=== PATIENT | male | born 1985 | race African-American/Black ===

== ENCOUNTER 2021-05-08 09:22 | Emergency (ER) | payer SELFPAY ==
[~2021-05-08] VITALS: Ht 185.4 cm; Wt 94.0 kg
[2021-05-08] MEDS ORDERED: SODIUM CHLORIDE 0.9% 1,000 ML IV ONE (10:15)
[2021-05-08 10:34] LABS: BASOPHILS % 0.5 % (0.0-2.0); HEMATOCRIT. 45.4 % (42.0-52.0); HEMOGLOBIN. 15.5 g/dL (14.0-18.0); LYMPHOCYTES % 16.1 % (20.0-50.0); MEAN CORPUSCULAR HEMOGLOBIN 28.9 pg (28.0-32.0); MEAN CORPUSCULAR VOLUME 84.7 fL (80.0-94.0); MEAN PLATELET VOLUME 8.2 fl (7.4-10.4); MONOCYTES % 11.1 % (2.0-8.0); NEUTROPHILS % 71.3 % (40.0-76.0); PLATELET 226 x1000/uL (130-400); RED BLOOD CELL COUNT 5.36 mill/uL (4.7-6.1); RED CELL DISTRIBUTION WIDTH 13.6 % (11.6-14.6)
[2021-05-08 10:42] LABS: CHLORIDE 110 mEq/L (98-107)
[2021-05-08 11:53] VITALS: BP 166/108
== END 2021-05-08 12:25 | disposition home or self-care (01) ==
LOC: ER 09:22
DX: R53.1 Weakness (principal); J02.9 Acute pharyngitis, unspecified; R42 Dizziness and giddiness; Z98.890 Other specified postprocedural states
CPT/HCPCS: 36415; 71045; 80053; 85025; 93005; 96360; 99285; J7030; A4315